=== PATIENT | male | born 1955 | race Caucasian/White ===

== ENCOUNTER 2017-08-20 21:34 | Observation (INO) | payer SELFPAY ==
[2017-08-20 22:19] LABS: #Eosinphils 0.1 thou/uL (0.0-0.7); #Lymphocytes 0.7 thou/uL (1.20-3.40); #Monocytes 0.8 thou/uL (0.11-0.59); #Neutrophils 8.6 thou/uL (1.40-6.50); %Basophils 0.4 % (0.0-1.0); %Eosinophils 0.7 % (0.0-10.0); %Lymphocytes 7.1 % (21.0-51.0); %Monocytes 8.1 % (0.0-10.0); %Neutrophils 83.7 % (42.0-75.0); Mean Corpuscular Hemoglobin 35.2 pg (27.0-31.0); Mean Platelet Volume 6.6 fL (7.4-10.4); Platelet Count 277 thou/uL (130-400); RBC Distribution Width 12.4 % (11.5-14.5); Red Blood Cell (RBC) Count 3.97 mill/uL (4.70-6.10); White Blood Cell (WBC) Count 10.3 thou/uL (4.8-10.8)
--- NOTE | 2017-08-20 22:20 | RAD ---
PORTABLE CHEST: 08/20/17 HISTORY: Trauma. Patient fell between bed and wall. Heart size appears slightly enlarged. There are atherosclerotic changes of the aorta. The lungs are c lear. of infiltrates. No rib fractures identified. IMPRESSION: Mild cardiomegaly. POS: [facility]
[2017-08-20 22:40] LABS: ALT (SGPT) 25 U/L (8-55); AST (SGOT) 22 U/L (5-34); Albumin 4.3 g/dL (3.4-4.8); Alkaline Phosphatase 67 U/L (40-150); Anion Gap 17 mmol/L (10-20); BUN (Urea Nitrogen) 19 mg/dL (8.4-25.7); CK (CPK) 202 U/L (30-200); Calc. Creatinine Clearance 0 mL/min (70-130); Calcium 10.3 mg/dL (7.8-10.44); Carbon Dioxide 24 mmol/L (23-31); Chloride 101 mmol/L (98-107); Estimated GFR-MDRD Greater than 90; Globulin 2.6 g/dL (2.4-3.5); Glucose 98 mg/dL (80-115); Potassium 4.2 mmol/L (3.5-5.1); Protein, Total 6.9 g/dL (5.8-8.1); Sodium 138 mmol/L (136-145)
[2017-08-20 22:43] LABS: CKMB 2.3 ng/mL (0-6.6); Troponin I 0.015 ng/mL (< 0.028)
[2017-08-20 22:46] LABS: Bilirubin Small (Negative); Blood, Urine Negative (Negative); Clarity CLEAR (Clear); Glucose, Urine (Dipstick) Negative (Negative); Leukocyte Negative (Negative); Nitrite Negative (Negative); Protein, Urine (Dipstick) Trace mg/dL (Neg-Trace); Specific Gravity, Urine 1.028 (1.002-1.036); pH, Urine 5.5 (5.0-9.0)
[2017-08-21] MEDS ORDERED: Acetaminophen 325 MG TAB PO PRN (01:42)
[2017-08-21] MEDS ORDERED: Sodium Chloride 0.9% 1,000 ML IV SCH ×2 (01:42→06:00)
[2017-08-21] MEDS ORDERED: Ondansetron HCl/PF 4 MG/2 ML Vial IVP PRN ×2 (01:42→05:50)
[2017-08-21] MEDS ORDERED: Ondansetron ODT 4 MG TAB SL PRN (01:42)
[2017-08-21 02:01] VITALS: BMI 22.8
[2017-08-21] MEDS ORDERED: Acetaminophen 500 MG TAB PO PRN (05:50)
[2017-08-21] MEDS ORDERED: Ondansetron ODT 4 MG TAB PO PRN (05:50)
[2017-08-21] MEDS ORDERED: cloNIDine 0.1 MG TAB PO PRN (05:50)
[2017-08-21] MEDS ORDERED: hydrALAZINE 20 MG/ML VIAL SLOW IVP PRN (05:50)
--- NOTE | 2017-08-21 06:40 | HP ---
DATE OF ADMISSION: 08/21/2017 PRIMARY CARE PROVIDER: Elda sy. CHIEF COMPLAINT: Falling. HISTORY OF PRESENT ILLNESS: This is a 61-year-old male who presents to [facility] after apparently falling beside his bed in the wall at home and his is unable to assist him or get him back to bed. History is somewhat confusing as patient is a poor historian and the who was apparently intoxicated at the time of evaluation in the emergency room. The patient does have a significant history of brain carcinoma, currently receiving treatment status post resect ion and radiation and chemotherapy. The patient apparently was treated at [facility] in [place], [place]. The patient has residual left-sided weakness and dysarthria secondarily to the brain carci noma. The patient underwent evaluation in the emergency room including CT imaging of the brain showi ng no acute intracranial process. Chronic changes consistent with prior surgical intervention noted. Portable chest x-ray performed on 08/20/2017 showed mild cardiomegaly, but no acute infiltrate. No history of recent fever, chills, exposure history. No family members with illness. No seizure-like activity noted. PAST MEDICAL HISTORY: 1. Brain cancer, status post resection with current chemotherapy and radiation. 2. History of atrial flutter/fibrillation. 3. Tobacco abuse. PAST SURGICAL HISTORY: Status post craniectomy with tumor resection. CURRENT MEDICATIONS: Unobtainable as the patient is unclear of what he takes at home. ALLERGIES: No known drug allergies. FAMILY HISTORY: Positive for diabetes mellitus. SOCIAL HISTORY: The patient is , residing in the [place], [place] area. Smokes up to a pack o f cigarettes daily. Currently, unemployed. No alcohol or illicit drug use. REVIEW OF SYSTEMS: Unobtainable as patient cannot give a coherent history. PHYSICAL EXAMINATION: VITAL SIGNS: Currently, blood pressure 119/84, pulse 115, respiratory rate 18, temperature 97.4 degr ees Fahrenheit, and O2 saturation 96% on room air. GENERAL APPEARANCE: This is a 61-year-old male, sleeping, in no acute distress. HEENT: Pupils are equal, round, and reactive to light and accommodation. Extraocular muscles are in tact. No scleral icterus, no conjunctival injection. Nares patent. OP is clear. NECK: Supple, no cervical adenopathy, no thyromegaly, no carotid bruits, no JVD appreciated. Cervic al spine with full active and passive range of motion. No meningeal signs appreciated. CHEST: Diminished breath sounds in the bases. CARDIOVASCULAR: S1, S2 with irregular rate and rhythm. ABDOMEN: Rounded, soft, nontender, nondistended. Bowel sounds are positive in all four quadrants. There is no hepatosplenomegaly, no abdominal bruits, no rebound or guarding appreciated. EXTREMITIES: Warm and dry with fair turgor. No clubbing, cyanosis or asymmetric edema appreciated. Pulses palpable distally at the dorsalis pedis, posterior tibial, and popliteal arteries bilaterally . Capillary refill less than 2 seconds. NEUROLOGIC: Cranial nerves II-XII are grossly intact. Left-sided weakness noted. Positive dysarthr ia. The patient not observed ambulatory during this exam. PERTINENT LABORATORY DATA AND X-RAY FINDINGS: Basic metabolic profile within normal limits. Calcium 10.3. LFTs within normal limits. Total CK of 202. CBC showed a white blood cell count of 10.3, he moglobin 14, hematocrit 41, MCV 103, platelet count 277 with 84% neutrophils. Urinalysis showed trac e ketones. Portable chest x-ray dated 08/20/2017, showed mild cardiomegaly. CT of the brain without contrast dated 08/20/2017, showed right frontal craniotomy. White matter edema in the right frontal region noted. Small amount of right to left midline shift noted measuring 2 to 3 mm. No acute proc ess identified. EKG dated 08/20/2017, by my interpretation showed questionable sinus tachycardia wit h heart rates in the 120s. Attenuated R waves noted in the precordial leads. Normal axis. Incomple te left bundle branch block pattern noted. ASSESSMENT AND PLAN: 1. Generalized weakness with fall. The patient will be placed on medical observation. We will obta in PT, OT evaluation for general functional assessment. General fall risk precautions. 2. Dehydration. We will continue intravenous fluids with normal saline at 100 mL per hour. Continu e to encourage free water intake. 3. Deconditioning. PT, OT evaluation for functional assessment pending. 4. Prophylaxis. Sequential compression devices while in bed. Pepcid 20 mg p.o. b.i.d. 5. Code status is FULL. Surrogate medical decision maker is patient's spouse.
--- NOTE | 2017-08-21 07:43 | CT ---
PRELIMINARY REPORT/[facility]/EMERGENCY AFTER HOURS PROCEDURE: EXAM: CT Head Without Intravenous Contrast CLINICAL HISTORY: 61 years old, male; Signs and symptoms; Altered mental status/memory loss; Confusion or disorientatio n; Patient HX: AMS TECHNIQUE: Axial computed tomography images of the head/brain without intravenous contrast. COMPARISON: No relevant prior studies available. FINDINGS: Prior right frontal craniotomy. Prominent underlying white matter edema in the right frontal region. I suspect this represents edema secondary to neoplasm. Please correlate clinically. Some low-attenuation appears to extend across the genu of the corpus callosum into the medial left fr ontal region. Follow up imaging with MRI could better evaluate/characterize these findings if felt clinically neede d. Mild to moderate focal mass effect on the frontal horn of the right lateral ventricle. Small amount of right to left midline shift, measuring about 2-3 mm. Eventual comparison with any available prior exams will be helpful. No definite acute intracranial hemorrhage. Ventricle size is otherwise unremarkable for age. No definite acute infarct by CT. MRI could be more sensitive/specific for an acute infarct if clinically indicated. No definite acute skull fracture. Included paranasal sinuses are essentially clear. IMPRESSION: Prior right frontal craniotomy. Prominent underlying white matter edema in the right frontal region, suspicious for edema secondary t o neoplasm. Some low-attenuation appears to extend across the genu of the corpus callosum into the medial left fr ontal region. See above discussion. Mild to moderate focal mass effect on the frontal horn of the right lateral ventricle. Small amount of right to left midline shift, measuring about 2-3 mm. No definite acute intracranial hemorrhage. No definite acute infarct by CT, see above. Thank you for allowing us to participate in the care of your patient. Dictated and Authenticated by: Richard Banegas MD 08/21/2017 12:50 AM Central Time ([place] & [place]) FINAL REPORT CT BRAIN WITHOUT CONTRAST: I agree with the preliminary report given by Dr. Richard Banegas of [facility]. POS: [facility]
[2017-08-21] MEDS ORDERED: Famotidine 20 MG TAB PO SCH (09:00)
[2017-08-21 12:35] VITALS: BP 124/85; TEMP 97.7
[2017-08-21] MEDS ORDERED: Senokot 8.6 MG TAB PO PRN (12:59)
[2017-08-21] MEDS ORDERED: Docusate 100 MG CAP PO PRN (12:59)
--- NOTE | 2017-08-21 12:59 | PDOC.EVN ---
Event Note - Event Note Event Note: Patient evaluated by PT. Needs significant help at home, but does seem to have all the appropriate equipment already at home. was reportedly inebriated last night and so unable to get the patient up when he fell to his knees trying to get back to bed after going to bathroom. APS has done an assessment and will be following up. Patient is adamant that he wants to go back home. Son and present in room and available to help him at home. Spoke with Thy from Dr. Hoffmann's (Rad Onc) at [facility] and they will see him tomorrow for continuation of radiation therapy. Family refusing rehab at this point. Will give patient his home meds and then d/c home. F/u with oncologist in the morning.
[2017-08-21] MEDS ORDERED: Nicotine 21 MG PATCH TD SCH (13:15)
[2017-08-21] MEDS ORDERED: Tamsulosin HCl 0.4 MG CAP PO SCH (13:15)
[2017-08-21] MEDS ORDERED: levETIRAcetam 500 MG TAB PO SCH ×2 (13:15→21:00)
[2017-08-21] MEDS ORDERED: Metoprolol Tartrate 25 MG TAB PO SCH (13:15)
[2017-08-21] MEDS ORDERED: Lidocaine 5% Patch TD SCH (13:15)
[2017-08-21] MEDS ORDERED: Mometasone/Formoterol 120 PUFF INHALER INH SCH ×2 (13:15→18:30)
[2017-08-21] MEDS ORDERED: Folic Acid 1 MG TAB PO SCH (13:15)
[2017-08-21] MEDS ORDERED: Sodium Chloride 0.9% 10 ML ONE (13:40)
[2017-08-21] MEDS ORDERED: Midodrine HCl 5 MG TAB PO SCH (15:00)
[2017-08-21] MEDS ORDERED: ALPRAZolam 1 MG TAB PO SCH (15:00)
[2017-08-21] MEDS ORDERED: Non-Formulary Item 1 EACH (Famotidine [Famotidine] 20 MG) PO SCH (21:00)
--- NOTE | 2017-08-22 04:20 | DIS ---
PRIMARY CARE PHYSICIAN: Out of town. PRIMARY RADIOLOGY/ONCOLOGIST: Dr. Hoffmann at [facility]. DIAGNOSES ON ADMISSION: 1. Generalized weakness with fall. 2. Dehydration. 3. Deconditioning. 4. Brain cancer, status post resection with chemotherapy and radiation terminal. DIAGNOSES ON DISCHARGE: 1. Generalized weakness with fall. 2. Dehydration. 3. Deconditioning. 4. Brain cancer, status post resection with chemotherapy and radiation terminal. PERTINENT LABORATORY: All labs grossly within normal limits without significant abnormalities. IMAGING: CT of the brain showed a prior right frontal craniotomy and prominent underlying white lisa er edema in the right frontal region suspicious for edema from neoplasm. Now, there was a small righ t to left midline shift about 2-3 mm, but no acute intracranial hemorrhage or infarct and no fracture seen. SUMMARY OF HOSPITAL COURSE: This is a 61-year-old white male who has known history of brain cancer, status post resection with chemotherapy and radiation is being slowly weaker. He has home physical t herapy and occupational therapy, and has a rolling walker at home along with a PT belt helps to his f amily get him up and down. His doctors are looking and getting him in a wheelchair as well. Maik godinez went to the bathroom, on his way back from the bathroom, he twisted to go into the bed and he went down into his knees, he did not hit his head or his neck or hurt anything, but he could not get back up. He was wedged between the bed and the wall and his , per EMS was intoxicated at that time co uld not help him up either, and so she called EMS. He was brought into the emergency room and was fo und to be stable. This is a slow decline from his brain cancer. Patient did have physical therapy e valuation done while he was on observation in the hospital. This showed that he needed moderate assi stance and I did discuss this with the patient, his , and his son who was in the room and I asked them to stay, I felt capable of taking care of him at home. The patient stated that he felt comfort able at home and that he wanted to go back home and his family agreed with this, so that they can mitch e care of him well. They did not want any rehabilitation or half-way facility stay. I did ta lk to patient's restaurant assistant with Dr. Hoffmann in [facility] and confirmed that he does have an appo intment to follow up with him tomorrow. We are going to continue getting radiation, though he missed one of his dose of chemotherapy today because of the fall in the hospital visit. The patient is eag er to go home and discharging him. DISCHARGE MANAGEMENT: Discharged home. Follow up with Dr. Hoffmann as previously scheduled tomorrow. ACTIVITY: Ambulate with assistance using his walker, and family helping him. DIET: Regular diet. DISCHARGE MEDICATIONS: Resume home medications, 1. Senna twice a day as needed. 2. Metoprolol tartrate 25 mg daily. 3. Acetaminophen with codeine #3, one every 6 hours as needed for pain. 4. Levetiracetam 500 mg twice a day. 5. Nicoderm CQ 21 mg transdermal daily. 6. Midodrine 5 mg 3 times a day. 7. Lidocaine 5% patch 1 transdermal daily. 8. Folic acid 1 mg daily. 9. Famotidine 20 mg twice a day. 10. Colace 100 mg twice a day as needed. 11. Symbicort 160/4.5 one puff inhaled twice a day. 12. Xanax 1 mg 3 times a day. 13. Tamsulosin 0.4 mg daily.
[2017-08-22] MEDS ORDERED: Nicotine 21 MG PATCH TD SCH (09:00)
[2017-08-22] MEDS ORDERED: Metoprolol Tartrate 25 MG TAB PO SCH (09:00)
[2017-08-22] MEDS ORDERED: Folic Acid 1 MG TAB PO SCH (09:00)
[2017-08-22] MEDS ORDERED: Lidocaine 5% Patch TD SCH (09:00)
[2017-08-22] MEDS ORDERED: Tamsulosin HCl 0.4 MG CAP PO SCH (09:00)
== END 2017-08-21 15:01 | disposition home health service (06) ==
LOC: ERS 21:34 → T4-B 08-21
PROVIDERS: ADMIT Family Medicine; ATTEND Family Medicine
DX: R53.1 Weakness (principal); E86.0 Dehydration; C71.9 Malignant neoplasm of brain, unspecified; F17.210 Nicotine dependence, cigarettes, uncomplicated; Z98.890 Other specified postprocedural states; Z91.81 History of falling
CPT/HCPCS: 36415; 51701; 70450; 71010; 80053; 81003; 82553; 84484; 85025; 93005; 94760; 96360; 96361; A4216; G0378; G8978-GP-CL; G8979-GP-CK; G8987-GO-CK; G8988-GO-CJ